=== PATIENT | male | born 1970 | race Caucasian/White ===

== ENCOUNTER 2020-01-18 16:26 | Emergency (ER) | payer OTHER ==
[~2020-01-18] VITALS: Ht 180.3 cm; Wt 122.5 kg
[2020-01-18 16:27] VITALS: BP 157/84
--- NOTE | 2020-01-18 16:27 | NUR ---
LEVI PEARL FOR PREBOOK AND MEDICAL CLEARANCE.
--- NOTE | 2020-01-18 16:57 | NUR ---
PATIENT [facility] POLICE DEPT. PATIENT EXAMINED BY DR. BUCK. PATIENT MEDICALLY CLEARED AND RELEASED IN CUSTODY IN STABLE CONDITION. ORIGINAL PRE-BOOK FORM GIVEN TO OFFICER.
[2020-01-18 16:58] VITALS: BP 157/84
--- NOTE | 2020-01-18 16:58 | NUR ---
Patient discharged with v/s stable. Written and verbal after care instructions given and explained. Patient verbalized understanding. Police with in custody. All questions addressed prior to discharge. Advised to follow up with PMD.
== END 2020-01-18 16:58 ==
LOC: MED 16:26
DX: I50.9 Heart failure, unspecified (principal); F20.9 Schizophrenia, unspecified; F31.9 Bipolar disorder, unspecified; Z02.89 Encounter for other administrative examinations; Z91.14 Patient's other noncompliance with medication regimen
CPT/HCPCS: 99283